=== PATIENT | female | born 1970 | race Caucasian/White ===

== ENCOUNTER 2018-03-01 17:00 | Emergency (ER) | payer MEDICAID ==
[~2018-03-01] VITALS: Ht 170.2 cm; Wt 111.0 kg
[~2018-03-01 17:00] MED LIST: CYCL-1 PO
[2018-03-01 17:12] VITALS: BP 149/84
[2018-03-01] MEDS ORDERED: MECL12.584 PO (18:30)
[2018-03-01] MEDS ORDERED: ONDA4TAB9 SL (18:30)
== END 2018-03-01 18:37 | disposition home or self-care (01) ==
LOC: ER 17:03
DX: R42 Dizziness and giddiness (principal); Z90.49 Acquired absence of other specified parts of digestive tract
CPT/HCPCS: 99283

== ENCOUNTER 2019-12-07 11:06 | Emergency (ER) | payer MEDICAID ==
[~2019-12-07] VITALS: Ht 170.2 cm; Wt 116.8 kg
[~2019-12-07 11:06] MED LIST changes: +MECL-183 PO
[2019-12-07 11:10] VITALS: BP 140/79
[2019-12-07] MEDS ORDERED: LIDOcaine 1% W/epiNEPHrine 1:200,000 10ml vial IJ ONE (11:35)
[2019-12-07] MEDS ORDERED: TETanus/Pertussis (Acell)/Diphther VAC/PF (Tdap-Adult) 0.5ml syringe IMVAC ONE (11:35)
== END 2019-12-07 12:18 | disposition home or self-care (01) ==
LOC: ER 11:06
DX: S91.312A Laceration without foreign body, left foot, initial encounter (principal); Z90.49 Acquired absence of other specified parts of digestive tract; Z79.899 Other long term (current) drug therapy; W22.8XXA Striking against or struck by other objects, initial encounter; Y93.89 Activity, other specified; Y92.89 Other specified places as the place of occurrence of the external cause; Y99.8 Other external cause status
CPT/HCPCS: 12001; 90471; 90715; 99283

== ENCOUNTER 2019-12-14 12:14 | Emergency (ER) | payer MEDICAID ==
[~2019-12-14] VITALS: Ht 170.2 cm; Wt 122.0 kg
[2019-12-14 12:16] VITALS: BP 146/86
--- NOTE | 2019-12-14 12:50 | NUR ---
Patient seen and assessed by provider.
== END 2019-12-14 12:50 | disposition home or self-care (01) ==
LOC: ER 12:14
DX: S91.312D Laceration without foreign body, left foot, subsequent encounter (principal); Z90.49 Acquired absence of other specified parts of digestive tract; Z79.899 Other long term (current) drug therapy; W25.XXXD Contact with sharp glass, subsequent encounter
CPT/HCPCS: 99282

== ENCOUNTER 2022-05-19 20:40 | Emergency (ER) | payer MEDICAID ==
[~2022-05-19] VITALS: Ht 170.2 cm; Wt 123.6 kg
[~2022-05-19 20:40] MED LIST changes: -MECL-183 PO; +MECL-226 PO
[2022-05-19 20:51] VITALS: BP 142/92
[2022-05-19] MEDS ORDERED: IBUP-1986 PO (23:10)
== END 2022-05-19 23:20 | disposition home or self-care (01) ==
LOC: ER 20:41
DX: R25.2 Cramp and spasm (principal); M79.605 Pain in left leg; Z79.899 Other long term (current) drug therapy
CPT/HCPCS: 93971; 99284

== ENCOUNTER 2023-02-23 02:02 | Emergency (ER) | payer MEDICAID ==
[~2023-02-23] VITALS: Ht 170.2 cm; Wt 127.3 kg
[~2023-02-23 02:02] MED LIST changes: +IBUP-1986 PO
[2023-02-23 02:09] VITALS: TEMP 97.4
[2023-02-23] MEDS ORDERED: proCHLORperazine 10 MG/2 ml inj IV ONE (03:15)
[2023-02-23] MEDS ORDERED: ketorolac trometh. 30mg/ml inj. IV ONE (03:15)
[2023-02-23] MEDS ORDERED: SUMAtriptan succ. 6 MG/0.5ml vial SQ ONE (03:15)
[2023-02-23] MEDS ORDERED: acetaminophen 325mg tablet PO ONE (03:15)
--- NOTE | 2023-02-23 03:24 | NUR ---
PT STATES TOOK 2 MAGNESIUM YESTERDAY AFTERNOON FOR HEADACHE WITH NO RELIEF.
--- NOTE | 2023-02-23 03:51 | NUR ---
PT IS DIFFICULT IV START, 1 ATTEMPT. PT STATES WOULD RATHER HAVE MEDICATIONS IM INSTEAD OF ANOTHER IV ATTEMPT. PER DR LEROY, OK TO GIVE MEDICATIONS IM NOT IV. PER DR LEROY, INCREASE DOSE OF TORODOL TO 30MG INSTEAD OF 15MG FOR IM INJECTION.
[2023-02-23 05:27] VITALS: BP 139/84; PULSE 76; RESP 18; O2SAT 95
== END 2023-02-23 05:25 | disposition home or self-care (01) ==
LOC: ER 02:02
DX: R51.9 Headache, unspecified (principal); Z90.49 Acquired absence of other specified parts of digestive tract
CPT/HCPCS: 96372; 96374; 96375; 99284; J0780; J1885; J3030

== ENCOUNTER 2024-05-18 09:07 | Inpatient (IN) | payer MEDICAID ==
[2024-05-13 10:49] LABS: BASOPHILS % (AUTO) 0.6 % (0-1); EOSINOPHILS # (AUTO) 0.1 X10'3 (0-0.9); EOSINOPHILS % (AUTO) 2.3 % (0-6); LYMPHOCYTES # (AUTO) 1.5 X10'3 (1.1-4.8); LYMPHOCYTES % (AUTO) 24.7 % (21-51); MEAN CORPUSCULAR HEMOGLOBIN 30.4 PG (27.0-31.0); MEAN CORPUSCULAR VOLUME 89.4 FL (78-98); MEAN PLATELET VOLUME 7.9 FL (7.4-10.4); MONOCYTES # (AUTO) 0.5 X10'3 (0-0.9); MONOCYTES % (AUTO) 7.8 % (2-12); NEUTROPHILS # (AUTO) 3.9 X10'3 (1.8-7.7); NEUTROPHILS % (AUTO) 64.6 % (42-75); PRE OP HEMATOCRIT 44.8 % (35.0-45.0); PRE OP HEMOGLOBIN 15.2 g/dL (12.0-16.0); PRE OP PLATELET COUNT 285 X10'3 (140-440); PRE OP WHITE BLOOD COUNT 6.1 10'3 (4.8-10.8); RED BLOOD COUNT 5.01 X10'6 (4.20-5.60); RED CELL DISTRIBUTION WIDTH 13.1 % (11.5-14.5)
[2024-05-13 10:56] LABS: ALBUMIN 3.8 G/DL (3.4-5.0); ALBUMIN/GLOBULIN RATIO 0.8 (1.1-1.5); ALKALINE PHOSPHATASE 103 IU/L (46-116); BLOOD UREA NITROGEN 11 MG/DL (7-18); BUN/CREATININE RATIO 14.7 (10.0-20.0); CALCIUM 9.1 MG/DL (8.5-10.1); CHLORIDE 104 MMOL/L (99-107); CREATININE 0.75 MG/DL (0.40-0.90); PRE OP ALT 64 U/L (30-65); PRE OP ANION GAP 10 (8-16); PRE OP AST 43 U/L (10-37); PRE OP BILIRUB, TOTAL 0.7 MG/DL (0.0-1.0); PRE OP GLUCOSE 124 MG/DL (70-104); PRE OP POTASSIUM 4.2 MMOL/L (3.4-5.1); PRE OP SODIUM 140 MMOL/L (135-145); TOTAL CARBON DIOXIDE 26.5 MMOL/L (24-32); TOTAL PROTEIN 8.7 G/DL (6.4-8.2); eGFR 81 ML/MIN
[2024-05-18] VITALS (22 sets, daily range): BP systolic 120–154; BP diastolic 70–96; PULSE 84–104; RESP 13–19; TEMP 97.3–98.5; O2SAT 93–100
[~2024-05-18] VITALS: Ht 170.2 cm; Wt 125.1 kg
[~2024-05-18 09:07] MED LIST changes: -CYCL-1 PO; -IBUP-1986 PO; -MECL-226 PO; +NO HOME MEDS
[2024-05-18] MEDS ORDERED: morphine 2 MG/ML inj. syringe IV PRN (09:45)
[2024-05-18] MEDS ORDERED: labetalol 20mg/4ml (5mg/ml) syringe IV PRN (09:45)
[2024-05-18] MEDS ORDERED: enalaprilat dihydrate 2.5mg/2ml vial IV PRN (09:45)
[2024-05-18] MEDS: ringers solution, lacted 1,000 ML IV SCH ×3 (09:45→23:02)
[2024-05-18] MEDS ORDERED: morphine 4 MG/ML inj SYRINge IV PRN (09:45)
[2024-05-18] MEDS ORDERED: meperidine/PF 25mg/ml syringe IV PRN ×2 (09:45)
[2024-05-18] MEDS: famotidine 20mg tablet PO ONE (09:52)
[2024-05-18] MEDS: Cefazolin 3 GM/100ML NS IVPB 100 ML IV ONE (09:55)
[2024-05-18] MEDS ORDERED: LIDOcaine 1% 30ml preserv. free vial ONE (10:03)
[2024-05-18] MEDS ORDERED: BUPIVAcaine 2.5mg/ml inj 50ml vial (contains preservative) ONE (10:03)
[2024-05-18] MEDS ORDERED: BUPIVACAINE liposomal/PF 13.3 MG/ML vial IM ONE (10:03)
[2024-05-18] MEDS ORDERED: sevoflurane 250ml liquid IH ONE (10:22)
[2024-05-18] MEDS ORDERED: midazolam 1 mg/ML 2ml injection ONE (10:27)
[2024-05-18] MEDS ORDERED: fentaNYL /PF 50mcg/ml 5ml ampule ONE (10:27)
[2024-05-18] MEDS ORDERED: LIDOcaine 2% (20mg/ml) 5ml vial ONE (10:29)
[2024-05-18] MEDS ORDERED: propofol inj 20 ML IV ONE (10:29)
[2024-05-18] MEDS ORDERED: BUPIVAcaine/PF 2.5mg/ml (0.25%) 10ml vial ONE (10:53)
[2024-05-18] MEDS: BUPIVAcaine 2.5mg/ml inj 50ml vial (contains preservative) SQ ONE (11:11)
[2024-05-18] MEDS ORDERED: rocuronium 10mg/ml inj IV ONE (12:57)
[2024-05-18] MEDS ORDERED: ondansetron/PF 4mg/2ml inj ONE (12:57)
[2024-05-18] MEDS ORDERED: neostigmine methylsulfate 1 MG/ML 10ml vial ONE (13:11)
[2024-05-18] MEDS ORDERED: acetaminophen 1,000mg/100ml IV 100 ML IV ONE (13:11)
[2024-05-18] MEDS ORDERED: glycopyrrolate 0.2mg/ml inj ONE (13:11)
[2024-05-18] MEDS ORDERED: naloxone 0.4 mg/ml inj IV PRN (13:50)
[2024-05-18] MEDS ORDERED: oxyCODONE/APAP 5-325mg tablet PO PRN (13:50)
[2024-05-18] MEDS: ondansetron/PF 4mg/2ml inj IV PRN (13:51)
[2024-05-18] MEDS: meperidine/PF 25mg/ml syringe IV PRN (14:13)
[2024-05-18] MEDS: proCHLORperazine 10 MG/2 ml inj IV PRN (14:13)
[2024-05-18] MEDS: ketorolac trometh 15mg/ml vial 15 MG/ML ML IV ONE (14:31)
[2024-05-18] MEDS: oxyCODONE/APAP 5-325mg tablet PO PRN (18:47)
[2024-05-19] VITALS (9 sets, daily range): BP systolic 111–153; BP diastolic 61–82; PULSE 70–85; RESP 15–18; TEMP 97.1–98.2; O2SAT 92–97
[2024-05-19] MEDS: enoxaparin 40mg/0.4ml syringe SQ SCH (07:51)
[2024-05-19] MEDS ORDERED: PER5325T PO (14:51)
[2024-05-20 06:00] VITALS: BP 98/62; PULSE 84; RESP 15; TEMP 97.2; O2SAT 95
[2024-05-20] MEDS: ondansetron/PF 4mg/2ml inj IV PRN (09:42)
[2024-05-20 10:00] VITALS: BP 129/76; PULSE 95; RESP 16; TEMP 97.7; O2SAT 94
[2024-05-20 12:43] VITALS: RESP 16
[2024-05-20] MEDS: mag hydrox/Alum hydrox/simeth 30ml oral suspension PO PRN (12:58)
== END 2024-05-20 14:10 | disposition home or self-care (01) | DRG 224 ==
LOC: PAS 09:07 → PAS IN 13:50 → ORTHO 4S 15:15
PROVIDERS: ADMIT Surgery; ATTEND Surgery
PROC: 0DNL4ZZ Release Transverse Colon, Percutaneous Endoscopic Approach (ICD-10-PCS; 2024-05-18)
PROC: 0DNU4ZZ Release Omentum, Percutaneous Endoscopic Approach (ICD-10-PCS; 2024-05-18)
PROC: 8E0W4CZ Robotic Assisted Procedure of Trunk Region, Percutaneous Endoscopic Approach (ICD-10-PCS; 2024-05-18)
PROC: 3E0T3BZ Introduction of Anesthetic Agent into Peripheral Nerves and Plexi, Percutaneous Approach (ICD-10-PCS; 2024-05-18)
PROC: 0WUF4JZ Supplement Abdominal Wall with Synthetic Substitute, Percutaneous Endoscopic Approach (ICD-10-PCS; principal; 2024-05-18 10:22)
DX: K43.0 Incisional hernia with obstruction, without gangrene (principal); R33.9 Retention of urine, unspecified; Z88.5 Allergy status to narcotic agent; Z90.49 Acquired absence of other specified parts of digestive tract
CPT/HCPCS: 36415; 80053; 82948; 85025; 87081; 93005; A4215; A4618; C1781; C9290; G0378; J0131; J0690; J0780; J1100; J1650; J1885; J2003; J2175; J2250; J2405; J2704; J2710; J3010; J3490; J7120

== ENCOUNTER 2024-05-31 00:18 | Emergency (ER) | payer MEDICAID ==
[~2024-05-31] VITALS: Ht 170.2 cm; Wt 127.0 kg
[~2024-05-31 00:18] MED LIST changes: +PER5325T PO
[2024-05-31] MEDS ORDERED: iohexol 300mg/ml 100ml inj. ONE (00:37)
[2024-05-31] MEDS: normal saline 1000ML IV soln IVB ONE (00:48)
[2024-05-31 00:57] LABS: BASOPHILS # (AUTO) 0.1 X10'3 (0-0.2); BASOPHILS % (AUTO) 0.6 % (0-1); EOSINOPHILS # (AUTO) 0.5 X10'3 (0-0.9); EOSINOPHILS % (AUTO) 5.3 % (0-6); HEMATOCRIT 36.5 % (35.0-45.0); HEMOGLOBIN 12.5 g/dl (12.0-16.0); LYMPHOCYTES # (AUTO) 1.5 X10'3 (1.1-4.8); LYMPHOCYTES % (AUTO) 16.1 % (21-51); MEAN CORPUSCULAR HEMOGLOBIN 30.6 PG (27.0-31.0); MEAN CORPUSCULAR HGB CONC 34.4 g/dL (33.0-36.5); MEAN CORPUSCULAR VOLUME 89.1 FL (78-98); MEAN PLATELET VOLUME 7.1 FL (7.4-10.4); MONOCYTES # (AUTO) 0.7 X10'3 (0-0.9); MONOCYTES % (AUTO) 7.9 % (2-12); NEUTROPHILS # (AUTO) 6.4 X10'3 (1.8-7.7); NEUTROPHILS % (AUTO) 70.1 % (42-75); PLATELET COUNT 377 X10'3 (140-440); RED CELL DISTRIBUTION WIDTH 12.9 % (11.5-14.5); WHITE BLOOD COUNT 9.2 X10'3 (4.5-11.0)
[2024-05-31 01:01] LABS: URINE HCG NEGATIVE (NEG)
[2024-05-31 01:08] LABS: BILIRUBIN,URINE NEGATIVE (Neg); CLARITY,URINE CLOUDY (Clear); COLOR,URINE YELLOW (Yellow); GLUCOSE, URINE NEGATIVE (Neg); KETONES,URINE NEGATIVE (Neg); LEUKOCYTE ESTERASE ,URINE NEGATIVE (Neg); OCCULT BLOOD,URINE LARGE (Neg); PROTEIN,URINE 30 mg/dl (Neg); UROBILINOGEN,URINE 0.2 E.U/dL (0.2-1.0)
[2024-05-31 01:10] LABS: NITRITES, URINE NEGATIVE (Neg); UA COLLECTION TYPE OTHER
[2024-05-31 01:13] LABS: RENAL CELLS, URINE FEW /HPF; SQUAMOUS EPITHELIAL CELL,UR MANY /LPF (FEW); TRANSITIONAL EPI CELLS,URINE FEW /HPF
[2024-05-31 01:14] LABS: FINE GRANULAR CAST 0-3 /LPF (NEGATIVE); HYALINE CASTS 0-3 /LPF (NEGATIVE); WBC,URINE 0-4 /HPF (0-4)
[2024-05-31 01:15] LABS: RBC,URINE TNTC /HPF (0-2)
[2024-05-31 01:17] LABS: BACTERIA,URINE 2+ /HPF (Neg)
[2024-05-31 01:17] LABS: ALBUMIN 2.7 G/DL (3.4-5.0); ANION GAP 10 (8-16); BLOOD UREA NITROGEN 11 MG/DL (7-18); BUN/CREATININE RATIO 15.1 (10.0-20.0); CALCIUM 8.6 MG/DL (8.5-10.1); CHLORIDE 104 MMOL/L (99-107); CREATININE 0.73 MG/DL (0.40-0.90); GLUCOSE 165 MG/DL (70-104); LIPASE 187 U/L (16-77); POTASSIUM 3.3 MMOL/L (3.5-5.1); SODIUM 142 MMOL/L (135-145); TOTAL CARBON DIOXIDE 28.2 MMOL/L (24-32); eCRCL 89 ML/MIN; eGFR 84 ML/MIN
[2024-05-31 01:21] LABS: AMORPHOUS URATES 2+
[2024-05-31] MEDS: HYDROcodone/acetaminophen 5mg/325mg tablet PO ONE (03:04)
[2024-05-31] MEDS ORDERED: CLIN150C98 PO (03:06)
[2024-05-31] MEDS ORDERED: IBUP-1984 PO (03:06)
[2024-05-31] MEDS ORDERED: HYDR-3965 PO (03:07)
[2024-05-31 03:16] VITALS: BP 128/78; PULSE 74; RESP 14; TEMP 98.5; O2SAT 96
[2024-05-31] MEDS ORDERED: HYDR-3973 PO (16:51)
== END 2024-05-31 03:20 | disposition home or self-care (01) ==
LOC: ER 00:19
DX: N20.0 Calculus of kidney (principal); R74.8 Abnormal levels of other serum enzymes; Z88.5 Allergy status to narcotic agent; Z88.6 Allergy status to analgesic agent; Z90.49 Acquired absence of other specified parts of digestive tract; Z98.890 Other specified postprocedural states
CPT/HCPCS: 36415; 71045; 74177; 80048; 81001; 81025; 83690; 84484; 85025; 93005; 96360; 96361; 99285; J7030; Q9967